=== PATIENT | male | born 1985 | race Caucasian/White ===

== ENCOUNTER 2024-08-30 16:51 | Emergency (ER) | payer SELFPAY ==
[~2024-08-30] VITALS: Ht 167.6 cm; Wt 87.0 kg
[2024-08-30 16:54] VITALS: BP 144/98; PULSE 76; RESP 16; TEMP 97.9; O2SAT 100
[2024-08-30] MEDS ORDERED: IBUP-2029 MT (18:12)
[2024-08-30] MEDS: IBUPROFEN 600MG TABLET PO ONE (18:14)
== END 2024-08-30 18:26 | disposition home or self-care (01) ==
LOC: ER 16:51
DX: S60.221A Contusion of right hand, initial encounter (principal); S20.219A Contusion of unspecified front wall of thorax, initial encounter; V49.49XA Driver injured in collision with other motor vehicles in traffic accident, initial encounter; Y93.89 Activity, other specified; Y92.89 Other specified places as the place of occurrence of the external cause; Y99.8 Other external cause status
CPT/HCPCS: 71045; 73130; 99284